=== PATIENT | male | born 1965 | race Caucasian/White ===

== ENCOUNTER 2018-10-07 15:55 | Emergency (ER) | payer OTHER, SELFPAY ==
[2018-10-07 15:56] VITALS: BP 182/99; PULSE 75; RESP 20; TEMP 36.2; O2SAT 99; BMI 23.0
--- NOTE | 2018-10-07 16:00 | ED.PSYCH ---
HPI - Psych <Baron Chicas DO - Last Filed: 10/08/18 07:01> General Chief Complaint: Psychiatric Symptoms Stated Complaint: suicidal ideation Time Seen by Provider: 10/07/18 15:58 Source: patient and family Mode of arrival: ambulatory Limitations: no limitations History of Present Illness HPI Narrative: Patient is a 53-year-old male here for evaluation of suicidal ideation and alcohol abuse. Patient states that he has been drinking almost on a daily basis since he was 19 years old. He states he has tried to quit in the past. He states that his last drink was greater than 48 hr ago. Patient also with suicidal ideation and depression. He states that he thinks that these thoughts are stemming because of his alcohol use. He does have a history of hypertension however is not currently taking any medications. Does not have a primary care doctor. Patient is here with his . His states that a couple days ago the patient left the home with 1 of their guns. He did return on his own. He denies any other toxic ingestions. No specific plan on how he would kill himself however there has been gestures in the past according to his with firearms. Patient is here voluntarily. He states that he feels like he needs some help with his alcohol and also his depression. Related Data Allergies Allergy/AdvReac Type Severity Reaction Status Date / Time No Known Drug Allergies Allergy Verified 10/07/18 17:30 Review of Systems <DO Red Moon Last Filed: 10/08/18 07:01> Constitutional Denies fever(s), Denies frequent falls and Denies headache(s) ENT Ears, Nose, Mouth, and Throat: Denies vertigo, Denies dizziness and Denies headache(s) Cardiovascular Denies chest pain, Denies syncope, Denies irregular heart rhythm, Denies palpitations, Denies dyspnea and Denies slow heart rate Respiratory Denies cough and Denies dyspnea Gastrointestinal Gastrointestinal: Denies abdominal pain, Denies nausea and Denies vomiting Genitourinary Denies dysuria Musculoskeletal Denies myalgias and Denies arthralgias Integumentary/Breasts Denies lesions and Denies rash Neurologic Reports behavioral changes, Denies confusion, Denies vertigo, Denies dizziness, Denies syncope, Denies frequent falls and Denies headache(s) Psychiatric Denies anxiety, Reports behavioral changes, Denies confusion, Reports depression, Denies irritability, Denies panic attacks, Denies homicidal ideation and Reports suicidal ideation Endocrine Denies palpitations Hematologic/Lymphatic Comments: Not on anticoagulation Exam <DO Red Moon Last Filed: 10/08/18 07:01> Initial Vital Signs Initial Vital Signs: Vital Signs Temperature 97.2 F L 10/07/18 15:56 Pulse Rate 75 10/07/18 15:56 Respiratory Rate 20 10/07/18 15:56 Blood Pressure 182/99 H 10/07/18 15:56 Pulse Oximetry 99 10/07/18 15:56 Const General: cooperative, comfortable, well developed, well groomed and No acute distress Orientation: alert, awake and oriented x3 HENMT Head: normal to inspection and normocephalic Resp Effort & Inspection: normal respiratory effort Auscultation: clear to auscultation bilaterally Cardio Rate: regular rate Rhythm: regular rhythm Pulses: radial pulses present GI Inspection: non-distended Palpation: soft, No firm and No tender Skin Lesions: no lesions Neuro General: alert, awake and oriented x3 Extrem General: normal to inspection, capillary refill normal and No edema Psych Appearance: grossly normal and well kempt Speech and Movement: not agitated and speech clear Mood: not anxious, not manic and No irritable mood Affect: sad Attitude: cooperative Thought Process: normal Thought Content: normal <Maureen Sauceda DO - Last Filed: 10/08/18 00:08> Initial Vital Signs Initial Vital Signs: Vital Signs Temperature 97.2 F L 10/07/18 15:56 Pulse Rate 75 10/07/18 15:56 Respiratory Rate 20 10/07/18 15:56 Blood Pressure 182/99 H 10/07/18 15:56 Pulse Oximetry 99 10/07/18 15:56 Course <DO Red Moon Last Filed: 10/08/18 07:01> Orders Ordered: Discontinued Medications Lisinopril (Zestril) 10 mg PO NOW ONE Stop: 10/07/18 17:33 Last Admin: 10/07/18 18:33 Dose: 10 mg Lisinopril (Zestril) 10 mg PO NOW ONE Stop: 10/07/18 23:01 Last Admin: 10/07/18 23:30 Dose: 10 mg Lisinopril (Zestril) 10 mg PO NOW ONE Stop: 10/07/18 23:02 Last Admin: 10/07/18 23:31 Dose: 10 mg Lisinopril (Zestril) 10 mg PO NOW ONE Stop: 10/07/18 23:02 Last Admin: 10/07/18 23:31 Dose: 10 mg Vital Signs - 8 hr 10/07/18 23:40 Temperature 97.7 F Pulse Rate 77 Respiratory Rate 18 Blood Pressure [Right Arm] 141/95 H Pulse Oximetry 99 <Maureen Sauceda DO - Last Filed: 10/08/18 00:08> Orders Ordered: Discontinued Medications Lisinopril (Zestril) 10 mg PO NOW ONE Stop: 10/07/18 17:33 Last Admin: 10/07/18 18:33 Dose: 10 mg Lisinopril (Zestril) 10 mg PO NOW ONE Stop: 10/07/18 23:01 Last Admin: 10/07/18 23:30 Dose: 10 mg Lisinopril (Zestril) 10 mg PO NOW ONE Stop: 10/07/18 23:02 Last Admin: 10/07/18 23:31 Dose: 10 mg Lisinopril (Zestril) 10 mg PO NOW ONE Stop: 10/07/18 23:02 Last Admin: 10/07/18 23:31 Dose: 10 mg Vital Signs - 8 hr 10/07/18 23:40 Temperature 97.7 F Pulse Rate 77 Respiratory Rate 18 Blood Pressure [Right Arm] 141/95 H Pulse Oximetry 99 MDM - Psych <Baron Chicas DO - Last Filed: 10/08/18 07:01> Lab Data Attestation: I reviewed the patient's lab results. Result diagrams: 10/07/18 16:32 10/07/18 16:32 Lab Results 10/07/18 10/07/18 10/07/18 Range/Units 16:25 16:32 16:32 WBC 8.1 (4.5-11.0) X10^3/uL RBC 4.91 (4.5-5.9) X10^6/uL Hgb 15.4 (13.5-17.5) g/dL Hct 44.5 (41-53) % MCV 90.6 (80-100) fL MCH 31.4 (26-34) PG MCHC 34.7 (30-36) % RDW 14.2 (11.6-14.8) % Plt Count 249 (150-400) X10^3/uL Neut % (Auto) 66.8 (50-75) % Lymph % (Auto) 19.4 L (25-40) % [place] % (Auto) 12.0 (3-14) % Eos % (Auto) 1.1 L (2-4) % Baso % (Auto) 0.7 (0-2) % Neut # (Auto) 5400 (2847-7957) /uL Lymph # (Auto) 1600 (0880-2408) /uL [place] # (Auto) 1000 H (0-900) /uL Eos # (Auto) 100 (0-450) /uL Baso # (Auto) 100 (0-100) /uL Sodium 137 (137-145) mmol/L Potassium 3.3 L (3.4-5.1) mmol/L Chloride 95 L (98-107) mmol/L Carbon Dioxide 30 (22-32) mmol/L BUN 17 (9-20) mg/dL Creatinine 1.00 (0.66-1.25) mg/dL Estimated GFR > 60.0 (>60) mL/min BUN/Creatinine Ratio 17.0 (6-22) Glucose 109 H (70-100) mg/dL Calcium 9.4 (8.4-10.2) mg/dL TSH (0.47-4.68) uIU/mL Salicylates (<20) mg/dL Urine Opiates Screen Negative (Negative) Ur Oxycodone Screen Negative (Negative) Urine Methadone Screen Negative (Negative) Acetaminophen < 10 L (10-30) ug/mL Ur Barbiturates Screen Negative (Negative) U Tricyclic Antidepress Negative (Negative) Ur Phencyclidine Scrn Negative (Negative) Ur Amphetamines Screen Negative (Negative) U Methamphetamines Scrn Negative (Negative) Ur MDMA Scrn (Ecstasy) Negative (Negative) U Benzodiazepines Scrn Negative (Negative) Urine Cocaine Screen Negative (Negative) U Marijuana (THC) Screen Negative (Negative) Ethyl Alcohol < 10 mg/dL 10/07/18 10/07/18 Range/Units 16:32 16:32 WBC (4.5-11.0) X10^3/uL RBC (4.5-5.9) X10^6/uL Hgb (13.5-17.5) g/dL Hct (41-53) % MCV (80-100) fL MCH (26-34) PG MCHC (30-36) % RDW (11.6-14.8) % Plt Count (150-400) X10^3/uL Neut % (Auto) (50-75) % Lymph % (Auto) (25-40) % [place] % (Auto) (3-14) % Eos % (Auto) (2-4) % Baso % (Auto) (0-2) % Neut # (Auto) (1915-7820) /uL Lymph # (Auto) (9986-2138) /uL [place] # (Auto) (0-900) /uL Eos # (Auto) (0-450) /uL Baso # (Auto) (0-100) /uL Sodium (137-145) mmol/L Potassium (3.4-5.1) mmol/L Chloride (98-107) mmol/L Carbon Dioxide (22-32) mmol/L BUN (9-20) mg/dL Creatinine (0.66-1.25) mg/dL Estimated GFR (>60) mL/min BUN/Creatinine Ratio (6-22) Glucose (70-100) mg/dL Calcium (8.4-10.2) mg/dL TSH 3.38 (0.47-4.68) uIU/mL Salicylates < 1.0 (<20) mg/dL Urine Opiates Screen (Negative) Ur Oxycodone Screen (Negative) Urine Methadone Screen (Negative) Acetaminophen (10-30) ug/mL Ur Barbiturates Screen (Negative) U Tricyclic Antidepress (Negative) Ur Phencyclidine Scrn (Negative) Ur Amphetamines Screen (Negative) U Methamphetamines Scrn (Negative) Ur MDMA Scrn (Ecstasy) (Negative) U Benzodiazepines Scrn (Negative) Urine Cocaine Screen (Negative) U Marijuana (THC) Screen (Negative) Ethyl Alcohol mg/dL Urine Dip Bedside Urine Glucose Negative Bedside Urine Bilirubin - Negative Bedside Urine Ketone +/- 5 Urine Specific [place] 1.015 Bedside Urine Occult Blood ++ Bedside Urine pH 7.5 Bedside Urine Protein + 30 Bedside Urine Urobilinogen 1+ 2mg Bedside Urine Nitrite - Negative Bedside Urine Leukocytes - Negative Esterase ECG Data Attestation: I personally reviewed and interpreted this ECG as follows: Prior ECG tracings: not available for review Interpretation: Sinus rhythm Ventricular rate is 71 Normal axis Normal intervals Normal QRS LVH No ST T wave changes MDM Narrative Medical decision making narrative: Patient is medically cleared. Has no signs of alcohol withdrawal. Has been greater than 48 hr since his last drink. Patient is hypertensive but does have a history of hypertension is not currently on any medications. He was given a dose of lisinopril here in the emergency department. His hypertension is not an emergent issue. Will attempt to find him placement. Care turned over to night provider at change of shift for continued evaluation and disposition. <Maureen Sauceda, - Last Filed: 10/08/18 00:08> Lab Data Attestation: I reviewed the patient's lab results. Lab Results 10/07/18 10/07/18 10/07/18 Range/Units 16:25 16:32 16:32 WBC 8.1 (4.5-11.0) X10^3/uL RBC 4.91 (4.5-5.9) X10^6/uL Hgb 15.4 (13.5-17.5) g/dL Hct 44.5 (41-53) % MCV 90.6 (80-100) fL MCH 31.4 (26-34) PG MCHC 34.7 (30-36) % RDW 14.2 (11.6-14.8) % Plt Count 249 (150-400) X10^3/uL Neut % (Auto) 66.8 (50-75) % Lymph % (Auto) 19.4 L (25-40) % [place] % (Auto) 12.0 (3-14) % Eos % (Auto) 1.1 L (2-4) % Baso % (Auto) 0.7 (0-2) % Neut # (Auto) 5400 (5988-2972) /uL Lymph # (Auto) 1600 (0995-9478) /uL [place] # (Auto) 1000 H (0-900) /uL Eos # (Auto) 100 (0-450) /uL Baso # (Auto) 100 (0-100) /uL Sodium 137 (137-145) mmol/L Potassium 3.3 L (3.4-5.1) mmol/L Chloride 95 L (98-107) mmol/L Carbon Dioxide 30 (22-32) mmol/L BUN 17 (9-20) mg/dL Creatinine 1.00 (0.66-1.25) mg/dL Estimated GFR > 60.0 (>60) mL/min BUN/Creatinine Ratio 17.0 (6-22) Glucose 109 H (70-100) mg/dL Calcium 9.4 (8.4-10.2) mg/dL TSH (0.47-4.68) uIU/mL Salicylates (<20) mg/dL Urine Opiates Screen Negative (Negative) Ur Oxycodone Screen Negative (Negative) Urine Methadone Screen Negative (Negative) Acetaminophen < 10 L (10-30) ug/mL Ur Barbiturates Screen Negative (Negative) U Tricyclic Antidepress Negative (Negative) Ur Phencyclidine Scrn Negative (Negative) Ur Amphetamines Screen Negative (Negative) U Methamphetamines Scrn Negative (Negative) Ur MDMA Scrn (Ecstasy) Negative (Negative) U Benzodiazepines Scrn Negative (Negative) Urine Cocaine Screen Negative (Negative) U Marijuana (THC) Screen Negative (Negative) Ethyl Alcohol < 10 mg/dL 10/07/18 10/07/18 Range/Units 16:32 16:32 WBC (4.5-11.0) X10^3/uL RBC (4.5-5.9) X10^6/uL Hgb (13.5-17.5) g/dL Hct (41-53) % MCV (80-100) fL MCH (26-34) PG MCHC (30-36) % RDW (11.6-14.8) % Plt Count (150-400) X10^3/uL Neut % (Auto) (50-75) % Lymph % (Auto) (25-40) % [place] % (Auto) (3-14) % Eos % (Auto) (2-4) % Baso % (Auto) (0-2) % Neut # (Auto) (7858-1785) /uL Lymph # (Auto) (4769-4178) /uL [place] # (Auto) (0-900) /uL Eos # (Auto) (0-450) /uL Baso # (Auto) (0-100) /uL Sodium (137-145) mmol/L Potassium (3.4-5.1) mmol/L Chloride (98-107) mmol/L Carbon Dioxide (22-32) mmol/L BUN (9-20) mg/dL Creatinine (0.66-1.25) mg/dL Estimated GFR (>60) mL/min BUN/Creatinine Ratio (6-22) Glucose (70-100) mg/dL Calcium (8.4-10.2) mg/dL TSH 3.38 (0.47-4.68) uIU/mL Salicylates < 1.0 (<20) mg/dL Urine Opiates Screen (Negative) Ur Oxycodone Screen (Negative) Urine Methadone Screen (Negative) Acetaminophen (10-30) ug/mL Ur Barbiturates Screen (Negative) U Tricyclic Antidepress (Negative) Ur Phencyclidine Scrn (Negative) Ur Amphetamines Screen (Negative) U Methamphetamines Scrn (Negative) Ur MDMA Scrn (Ecstasy) (Negative) U Benzodiazepines Scrn (Negative) Urine Cocaine Screen (Negative) U Marijuana (THC) Screen (Negative) Ethyl Alcohol mg/dL Urine Dip Bedside Urine Glucose Negative Bedside Urine Bilirubin - Negative Bedside Urine Ketone +/- 5 Urine Specific [place] 1.015 Bedside Urine Occult Blood ++ Bedside Urine pH 7.5 Bedside Urine Protein + 30 Bedside Urine Urobilinogen 1+ 2mg Bedside Urine Nitrite - Negative Bedside Urine Leukocytes - Negative Esterase MDM Narrative Medical decision making narrative: Patient was signed out to myself by Dr. Chicas. Spoke with the patient and his , reviewed HPI and that he has had problems with alcohol abuse in the past and recently. He states he is not drinking as much but has been drinking recently although not today. Patient has had suicidal thoughts on and off in the past but they have becoming increasingly frequent Um and he has felt more and more depressed. On Wednesday or Wednesday he took a firearm with him and told his that he would not be back. He was gone for about 24 hr and then did return home. They still do have firearms in the house but they have been locked up by his . Patient feels that he is not safe to return home at this time. We attempted to get him a bed at [facility] but they were unable to take the patient. Patient is voluntary and interested in inpatient hospitalization, will continue to look for voluntary beds. Bed was secured at [facility]. Patient BP improved with lisinopril although still slightly elevated. They did ask that we send #3 10mg tablets of lisinopril with the patient they do not have any way to fill prescriptions over the weekend as well as a prescription for longer-term. Patient's is going to drive patient to facility. Patient has been calm, cooperative during the stay and is comfortable with the plan. Patient was also given a prescription for lisinopril 10 mg #15 tabs. Tablets 1 p.o. q.day. Patient is to arrive after 12:30AM ON 10/08. Discharge Plan Departure Patient Disposition: Xfer Psychiatric [facility]osp Clinical Impression: Suicidal ideation, Alcohol abuse, Hypertension Discharge Date/Time: 10/07/18 23:45 Interventions: ED Discharge Assessment Last Done: 10/07/18 23:44 Activity Restrictions/Additional Instructions: Go directly to the [facility]. Take the prescribed medications for your symptoms. Medications will be dispensed by the staff there. Take lisinopril 10mg once daily for blood pressure. If you leave the Center you CANNOT take the extra medication home with you.
--- NOTE | 2018-10-07 16:35 | PC.NURSE ---
[id number]- pt sitting on bed, provided with water. seems calm but tearful. is in room with pt
[2018-10-07 16:42] LABS: Add Manual Diff / Slide Review NO; Basophils Absolute Auto 100 /uL (0-100); Basophils Percent Auto 0.7 % (0-2); Eosinophils Absolute Auto 100 /uL (0-450); Eosinophils Percent Auto 1.1 % (2-4); Hematocrit 44.5 % (41-53); Hemoglobin 15.4 g/dL (13.5-17.5); Lymphocytes Absolute Auto 1600 /uL (1100-4500); Lymphocytes Percent Auto 19.4 % (25-40); Mean Corpuscular HGB Conc 34.7 % (30-36); Mean Corpuscular Hemoglobin 31.4 PG (26-34); Mean Corpuscular Volume 90.6 fL (80-100); Monocytes Absolute Auto 1000 /uL (0-900); Neutrophils Absolute Auto 5400 /uL (1500-7000); Neutrophils Percent Auto 66.8 % (50-75); Platelet Count 249 X10^3/uL (150-400); Red Blood Cell Count 4.91 X10^6/uL (4.5-5.9); Red Cell Distribution Width 14.2 % (11.6-14.8); White Blood Cell Count 8.1 X10^3/uL (4.5-11.0)
[2018-10-07 16:42] LABS: Urine Tetrahydrocannabinol Negative (Negative)
[2018-10-07 16:43] LABS: Urine Amphetamines Negative (Negative); Urine Barbiturates Negative (Negative); Urine Benzodiazepines Negative (Negative); Urine Cocaine Negative (Negative); Urine MDMA Negative (Negative); Urine Methadone Negative (Negative); Urine Methamphetamines Negative (Negative); Urine Morphine/Opi cutoff 2000 Negative (Negative); Urine Oxycodone Negative (Negative); Urine Phencyclidine Negative (Negative); Urine Tricyclic Antidepressant Negative (Negative)
[2018-10-07 16:52] LABS: Acetaminophen < 10 ug/mL (10-30); Blood Urea Nitrogen 17 mg/dL (9-20); Calcium 9.4 mg/dL (8.4-10.2); Carbon Dioxide 30 mmol/L (22-32); Chloride 95 mmol/L (98-107); Estimated Glomerular Filt Rate > 60.0 mL/min (>60); Ethanol (ETOH) < 10 mg/dL; Glucose 109 mg/dL (70-100); HEMOLYSIS < 15 (0-50); Potassium 3.3 mmol/L (3.4-5.1); Sodium 137 mmol/L (137-145)
[2018-10-07 17:01] LABS: Salicylate < 1.0 mg/dL (<20)
[2018-10-07 17:39] LABS: Thyroid Stimulating Hormone 3.38 uIU/mL (0.47-4.68)
--- NOTE | 2018-10-07 18:06 | PC.NURSE ---
Pt medically cleared, called [facility] to help find placement. [facility]CR triage states because patient was voluntary. Placed call to [facility] for list of available beds, they had a bed at this time for a male. Pt talking with [facility] for intake at t this time.
[2018-10-07 18:23] VITALS: BP 183/97; PULSE 76; RESP 16; O2SAT 99
[2018-10-07] MEDS: LISINOPRIL 10 MG TABLET PO ×4 (18:33→23:31)
[2018-10-07 20:14] VITALS: BP 153/94; PULSE 82; RESP 15; O2SAT 98
--- NOTE | 2018-10-07 20:25 | PC.NURSE ---
Talked with patients . She states patient has a long history of alcohol abuse. He has had tried multiple treatments to stop drinking. She states patient also had been prescribed antidepressants but is no longer taking them due to the way they made him feel. She states this Episode started 3 weeks ago, where pt kept increasing the amount he was drinking and appearing more drunk. When she called him out on his drinking, he left the house without phone and keys and was gone for about 2 days. This last weekend, patient had increase in drinking again, when his asked him about it, he left this time again with a gun stating it was the last time he was leaving and wasn't coming back. When asked patient about it, he states it would be easier to end it all than having to deal with the alcohol. Patient is wanting help with the alcohol to help with the feelings of hopelessness.
--- NOTE | 2018-10-07 20:32 | PC.NURSE ---
2031 pt is laying down on mattress. pt is calm and cooperative, seems to be resting
[2018-10-07 21:21] VITALS: BP 159/80; PULSE 79; RESP 16; O2SAT 97
[2018-10-07 23:40] VITALS: BP 141/95; PULSE 77; RESP 18; TEMP 36.5; O2SAT 99
== END 2018-10-07 23:45 ==
PROVIDERS: Emergency Medicine; Emergency Provider Emergency Medicine
DX: R45.851 Suicidal ideations (principal); F10.10 Alcohol abuse, uncomplicated; I10 Essential (primary) hypertension
CPT/HCPCS: 36415; 80048; 80305; 80320; 80329; 81003; 84443; 85025; 93005; 93010; 99284; G0480